=== PATIENT | male | born 1955 | race Caucasian/White ===

== ENCOUNTER 2020-07-21 09:28 | Day surgery (SDC) | payer MEDICAID ==
[2020-07-20 15:04] LABS: COVID AG,FIA SOURCE NASOPHARYNGEAL
[~2020-07-21] VITALS: Ht 175.3 cm; Wt 88.2 kg
[~2020-07-21 09:28] MED LIST: ACET-66 PO; AMLO2.5T29 PO; FERR325T23 PO; LISI40TA9 PO; TAMS-13 PO
[2020-07-21] MEDS ORDERED: EPINEPHrine 1:1,000 [1 MG/ML] AMP IM ONE (09:29)
[2020-07-21] MEDS ORDERED: BALANCED SALT 15 ML OPHTHALMIC IRRIG.SOLN OU ONE (09:29)
[2020-07-21] MEDS ORDERED: POVIDONE-IODINE 10% 15 ML SOLUTION UD TP ONE (09:29)
[2020-07-21] MEDS ORDERED: CHONDR SULF A SOD/HYALURONATE 1.05 ML KIT IO ONE (09:29)
[2020-07-21] MEDS ORDERED: TETRACAINE HCL/PF 0.5% 4 ML OPHTHALMIC SOLUTION OU ONE (09:29)
[2020-07-21] MEDS ORDERED: LIDOCAINE/PF 1% 2 ML VIAL IM ONE (09:29)
[2020-07-21] MEDS ORDERED: RINGERS SOLUTION,LACTATED 500 ML IV ONE ×2 (09:30→09:56)
[2020-07-21] MEDS ORDERED: TROPICAMIDE 1% 2 ML OPHTHALMIC SOLUTION ONE (09:56)
[2020-07-21] MEDS ORDERED: KETOROLAC TROMETHAMINE 0.5% 5 ML OPHTHALMIC SOLUTION ONE (09:56)
[2020-07-21] MEDS ORDERED: PHENYLEPHRINE HCL 2.5% 2 ML OPHTHALMIC SOLUTION ONE (09:56)
[2020-07-21] MEDS ORDERED: MOXIFLOXACIN HCL 0.5% 3 ML OPHTHALMIC SOLUTION ONE (09:56)
[2020-07-21] MEDS ORDERED: HYDR25TA2 PO (10:23)
[2020-07-21] MEDS ORDERED: TRI115O TP (10:23)
[2020-07-21] MEDS ORDERED: PRAV40TA4 PO (10:23)
[2020-07-21] MEDS: KETOROLAC TROMETHAMINE 0.5% 5 ML OPHTHALMIC SOLUTION OS SCH ×3 (10:40→10:50)
[2020-07-21] MEDS: PHENYLEPHRINE HCL 2.5% 2 ML OPHTHALMIC SOLUTION OS SCH ×3 (10:40→10:50)
[2020-07-21] MEDS: TROPICAMIDE 1% 2 ML OPHTHALMIC SOLUTION OS SCH ×3 (10:41→10:50)
[2020-07-21] MEDS: MOXIFLOXACIN HCL 0.5% 3 ML OPHTHALMIC SOLUTION OS SCH ×3 (10:41→10:50)
[2020-07-21] MEDS ORDERED: MIDAZOLAM HCL 2 MG/2 ML VIAL ONE (11:15)
[2020-07-21] MEDS ORDERED: FentaNYL CITRATE PF 100 MCG/2 ML VIAL ONE (11:15)
== END 2020-07-21 12:50 | disposition home or self-care (01) ==
LOC: SURGERY 09:28
PROVIDERS: ATTEND Ophthalmology
DX: H25.12 Age-related nuclear cataract, left eye (principal); I10 Essential (primary) hypertension; E78.00 Pure hypercholesterolemia, unspecified; Z79.899 Other long term (current) drug therapy; Z98.890 Other specified postprocedural states
CPT/HCPCS: 66984; 87426; 93005; A9575; C9803; J0171; J2250; J3010; J3490; J7120; V2632